=== PATIENT | female | born 1955 | race Caucasian/White ===

== ENCOUNTER 2019-01-09 19:05 | Inpatient (IN) | payer MEDICARE, OTHER ==
[2019-01-09 22:21] LABS: ADD MAN DIFF? NO
[2019-01-09] MEDS: ONDANSETRON 4 MG INJ IV (22:22)
[2019-01-09] MEDS: morphine 2 MG INJ IV (22:22)
[2019-01-09 22:24] LABS: BASOPHILS % 0.2 % (0.0-2.0); EOSINOPHILS % 0.1 % (0.0-7.0); HEMATOCRIT 34.5 % (37.0-47.0); LYMPHOCYTES # 0.8 10^3/ul (0.8-2.9); LYMPHOCYTES % 8.7 % (15.0-51.0); MEAN CORPUSCULAR HGB CONC 31.9 g/dl (32.0-37.0); MEAN CORPUSCULAR VOLUME 84.8 fl (82.0-101.0); MONOCYTE # 0.8 10^3/ul (0.3-0.9); MONOCYTES % 9.3 % (0.0-11.0); NEUTROPHIL # 7.2 10^3/ul (1.6-7.5); NEUTROPHILS % 81.1 % (39.0-77.0); PLATELET COUNT 333 10^3/UL (140-415); RED BLOOD COUNT 4.07 10^6/ul (4.20-5.40); RED CELL DISTRIBUTION WIDTH 13.8 % (11.5-14.5)
[2019-01-09 22:24] LABS: WHITE BLOOD COUNT 8.8 10^3/ul (4.8-10.8)
[2019-01-09] MEDS: SOD CHLORIDE 0.9% 1,000 ML IV (22:24)
[2019-01-09 22:33] LABS: ADD UMIC YES; UR ASCORBIC ACID 40 mg/dL (NEGATIVE); UR BILIRUBIN (Dip) NEGATIVE (NEGATIVE); UR BLOOD (Dip) NEGATIVE (NEGATIVE); UR CLARITY CLEAR (CLEAR); UR COLOR YELLOW (YELLOW); UR GLUCOSE (Dip) NEGATIVE (NEGATIVE); UR KETONES (Dip) TRACE mg/dL (NEGATIVE); UR LEUKOCYTE ESTERASE (Dip) TRACE Leu/ul (NEGATIVE); UR MUCUS FEW /HPF (NONE SEEN); UR NITRITE (Dip) NEGATIVE (NEGATIVE); UR RBC 0 /HPF (0-5); UR SPECIFIC GRAVITY (Dip) 1.016 (1.003-1.030); UR TOTAL PROTEIN (Dip) NEGATIVE (NEGATIVE); UR UROBILINOGEN (Dip) NEGATIVE (NEGATIVE); UR WBC 2 /HPF (0-5)
[2019-01-09 22:49] LABS: ALANINE AMINOTRANSFERASE 19 IU/L (13-69); ALBUMIN/GLOBULIN RATIO 1.11; ALKALINE PHOSPHATASE 99 IU/L (42-121); ANION GAP 10 (5-13); ASPARTATE AMINO TRANSFERASE 33 IU/L (15-46); BILIRUBIN,INDIRECT 0.2 mg/dl (0-1.1); BILIRUBIN,TOTAL 0.2 mg/dl (0.2-1.3); BLOOD UREA NITROGEN 15 mg/dl (7-20); CALCIUM 9.7 mg/dl (8.4-10.2); CARBON DIOXIDE 27 mmol/L (21-31); CHLORIDE 102 mmol/L (97-110); CREATININE 0.39 mg/dl (0.44-1.00); Estimated GFR > 60 mL/min (>60); GLUCOSE 135 mg/dl (70-220); POTASSIUM 4.4 mmol/L (3.5-5.1); SODIUM 139 mmol/L (135-144); TOTAL PROTEIN 7.6 g/dl (6.1-8.1)
[2019-01-09 23:01] LABS: TROPONIN-I < 0.012 ng/ml (0.000-0.120)
[2019-01-09 23:11] LABS: FREE T3 > 22.80 pg/ml (2.77-5.27)
[2019-01-09] MEDS: METHIMAZOLE 5 MG TAB PO (23:12)
[2019-01-09] MEDS: PROPRANOLOL 20 MG TAB PO (23:12)
[2019-01-09] MEDS: HYDROCORTISONE 100 MG INJ IV (23:12)
[2019-01-09 23:21] LABS: THYROID STIMULATING HORMONE < 0.015 MIU/L (0.465-4.680)
[2019-01-09] MEDS ORDERED: SOD CHLORIDE 0.9% 1,000 ML IV (23:25)
[2019-01-09] MEDS ORDERED: KETOROLAC 30 MG INJ IV (23:30)
[2019-01-09] MEDS ORDERED: ACETAMINOPHEN 325 MG TAB PO (23:30)
[2019-01-09] MEDS ORDERED: ONDANSETRON 4 MG INJ IV (23:30)
[2019-01-09 23:48] LABS: FREE T4 (FREE THYROXINE) > 6.99 ng/dl (0.78-2.44)
[2019-01-10] MEDS ORDERED: ACETAMINOPHEN 500 MG TAB PO (01:30)
[2019-01-10] MEDS: DEXTROSE 5%-0.9% NACL 1,000 ML IV (01:34)
[2019-01-10] MEDS: PROPRANOLOL 40 MG TAB PO ×3 (05:54→21:08)
[2019-01-10 06:44] LABS: IRON 12 ug/dl (35-150)
[2019-01-10 06:45] LABS: MAGNESIUM 2.2 mg/dl (1.7-2.5)
[2019-01-10 06:54] LABS: % IRON SATURATION 4 % SAT (22-52); TOTAL IRON BINDING CAPACITY 274 ug/dl (241-421)
[2019-01-10] MEDS: METHIMAZOLE 5 MG TAB PO ×2 (09:00→20:56)
[2019-01-10] MEDS: predniSONE 20 MG TAB PO (09:00)
[2019-01-10] MEDS: SOD FERRIC GLUC COMPLX 125 MG in SOD CHLORIDE 0.9% 100 ML IVPB (15:08)
[2019-01-10] MEDS: FERROUS FUMARATE (SR) TAB PO ×2 (15:08→20:56)
[2019-01-11] MEDS: DEXTROSE 5%-0.9% NACL 1,000 ML IV ×3 (01:30→21:56)
[2019-01-11] MEDS: HYDROCODONE/APAP (5/325) TAB PO ×3 (01:41→19:45)
[2019-01-11] MEDS: PROPRANOLOL 40 MG TAB PO ×3 (05:47→22:00)
[2019-01-11 06:36] LABS: ALANINE AMINOTRANSFERASE 20 IU/L (13-69); ALBUMIN 2.9 g/dl (3.3-4.9); ALBUMIN/GLOBULIN RATIO 0.96; ALKALINE PHOSPHATASE 97 IU/L (42-121); ANION GAP 5 (5-13); ASPARTATE AMINO TRANSFERASE 35 IU/L (15-46); BILIRUBIN,INDIRECT 0.2 mg/dl (0-1.1); BILIRUBIN,TOTAL 0.2 mg/dl (0.2-1.3); BLOOD UREA NITROGEN 15 mg/dl (7-20); CALCIUM 9.1 mg/dl (8.4-10.2); CARBON DIOXIDE 27 mmol/L (21-31); CHLORIDE 110 mmol/L (97-110); CREATININE 0.39 mg/dl (0.44-1.00); Estimated GFR > 60 mL/min (>60); GLUCOSE 113 mg/dl (70-220); POTASSIUM 3.3 mmol/L (3.5-5.1); SODIUM 142 mmol/L (135-144); TOTAL PROTEIN 5.9 g/dl (6.1-8.1)
[2019-01-11 08:02] LABS: ERYTHROCYTE SEDIMENTATION RATE 82 mm/Hr (0-30)
[2019-01-11] MEDS: predniSONE 20 MG TAB PO (09:21)
[2019-01-11] MEDS: METHIMAZOLE 5 MG TAB PO ×2 (09:21→21:35)
[2019-01-11] MEDS: FERROUS FUMARATE (SR) TAB PO ×2 (09:21→21:35)
[2019-01-11] MEDS: POTASSIUM CHLORIDE (SR) 20 MEQ TAB PO (12:01)
[2019-01-11] MEDS: SOD FERRIC GLUC COMPLX 125 MG in SOD CHLORIDE 0.9% 100 ML IVPB (13:33)
[2019-01-11] MEDS ORDERED: SOD CHLORIDE 0.9% 250 ML IV (20:00)
[2019-01-11] MEDS: SOD CHLORIDE 0.9% 500 ML IV (20:09)
[2019-01-11] MEDS: CELECOXIB 100 MG CAP PO (21:35)
[2019-01-12 05:39] LABS: ADD MAN DIFF? NO
[2019-01-12 05:52] LABS: BASOPHILS % 0.2 % (0.0-2.0); EOSINOPHILS % 0.2 % (0.0-7.0); HEMOGLOBIN 9.5 g/dl (12.0-16.0); LYMPHOCYTES # 1.4 10^3/ul (0.8-2.9); LYMPHOCYTES % 14.8 % (15.0-51.0); MEAN CORPUSCULAR HEMOGLOBIN 26.9 pg (29.0-33.0); MEAN CORPUSCULAR HGB CONC 31.7 g/dl (32.0-37.0); MEAN PLATELET VOLUME 10.4 fl (7.4-10.4); MONOCYTES % 10.7 % (0.0-11.0); NEUTROPHIL # 6.8 10^3/ul (1.6-7.5); NEUTROPHILS % 73.4 % (39.0-77.0); PLATELET COUNT 326 10^3/UL (140-415); RED BLOOD COUNT 3.53 10^6/ul (4.20-5.40); RED CELL DISTRIBUTION WIDTH 13.9 % (11.5-14.5)
[2019-01-12 05:52] LABS: WHITE BLOOD COUNT 9.2 10^3/ul (4.8-10.8)
[2019-01-12] MEDS: PANTOPRAZOLE (EC) 40 MG TAB PO (05:58)
[2019-01-12] MEDS: PROPRANOLOL 40 MG TAB PO ×3 (06:11→18:48)
[2019-01-12] MEDS: ONDANSETRON 4 MG INJ IV (06:33)
[2019-01-12] MEDS: POTASSIUM CHLORIDE (SR) 20 MEQ TAB PO ×2 (06:34→15:15)
[2019-01-12 06:38] LABS: ANION GAP 4 (5-13); BLOOD UREA NITROGEN 15 mg/dl (7-20); CALCIUM 9.1 mg/dl (8.4-10.2); CARBON DIOXIDE 28 mmol/L (21-31); CHLORIDE 111 mmol/L (97-110); CREATININE 0.39 mg/dl (0.44-1.00); Estimated GFR > 60 mL/min (>60); GLUCOSE 126 mg/dl (70-220); POTASSIUM 3.5 mmol/L (3.5-5.1); SODIUM 143 mmol/L (135-144)
[2019-01-12] MEDS: HYDROCODONE/APAP (5/325) TAB PO (08:41)
[2019-01-12] MEDS: CELECOXIB 100 MG CAP PO ×2 (08:41→20:47)
[2019-01-12] MEDS: FERROUS FUMARATE (SR) TAB PO ×2 (08:41→20:47)
[2019-01-12] MEDS: predniSONE 20 MG TAB PO (08:41)
[2019-01-12] MEDS: METHIMAZOLE 5 MG TAB PO ×2 (08:41→20:47)
[2019-01-12] MEDS ORDERED: PROPRANOLOL 40 MG TAB PO (12:00)
[2019-01-12] MEDS: SOD FERRIC GLUC COMPLX 125 MG in SOD CHLORIDE 0.9% 100 ML IVPB (13:33)
[2019-01-12] MEDS: DEXTROSE 5%-0.9% NACL 1,000 ML IV (13:38)
[2019-01-13] MEDS: PANTOPRAZOLE (EC) 40 MG TAB PO (06:19)
[2019-01-13] MEDS: PROPRANOLOL 40 MG TAB PO ×4 (06:19→17:43)
[2019-01-13] MEDS: HYDROCODONE/APAP (5/325) TAB PO (06:21)
[2019-01-13 06:39] LABS: ADD MAN DIFF? NO
[2019-01-13 06:43] LABS: BASOPHILS % 0.2 % (0.0-2.0); EOSINOPHILS % 0.2 % (0.0-7.0); HEMATOCRIT 28.2 % (37.0-47.0); HEMOGLOBIN 8.8 g/dl (12.0-16.0); LYMPHOCYTES # 1.6 10^3/ul (0.8-2.9); LYMPHOCYTES % 18.7 % (15.0-51.0); MEAN CORPUSCULAR HEMOGLOBIN 26.8 pg (29.0-33.0); MEAN CORPUSCULAR HGB CONC 31.2 g/dl (32.0-37.0); MEAN PLATELET VOLUME 10.6 fl (7.4-10.4); MONOCYTE # 0.9 10^3/ul (0.3-0.9); MONOCYTES % 9.8 % (0.0-11.0); NEUTROPHIL # 6.2 10^3/ul (1.6-7.5); NEUTROPHILS % 70.6 % (39.0-77.0); PLATELET COUNT 310 10^3/UL (140-415); RED BLOOD COUNT 3.28 10^6/ul (4.20-5.40); RED CELL DISTRIBUTION WIDTH 14.1 % (11.5-14.5)
[2019-01-13 06:43] LABS: WHITE BLOOD COUNT 8.7 10^3/ul (4.8-10.8)
[2019-01-13 07:04] LABS: ALANINE AMINOTRANSFERASE 24 IU/L (13-69); ALBUMIN 2.8 g/dl (3.3-4.9); ALKALINE PHOSPHATASE 95 IU/L (42-121); ANION GAP 5 (5-13); ASPARTATE AMINO TRANSFERASE 24 IU/L (15-46); BILIRUBIN,INDIRECT 0.2 mg/dl (0-1.1); BILIRUBIN,TOTAL 0.2 mg/dl (0.2-1.3); BLOOD UREA NITROGEN 15 mg/dl (7-20); CALCIUM 9.4 mg/dl (8.4-10.2); CARBON DIOXIDE 28 mmol/L (21-31); CHLORIDE 110 mmol/L (97-110); Estimated GFR > 60 mL/min (>60); GLUCOSE 106 mg/dl (70-220); SODIUM 143 mmol/L (135-144); TOTAL PROTEIN 5.6 g/dl (6.1-8.1)
[2019-01-13 07:22] LABS: FREE T4 (FREE THYROXINE) 5.61 ng/dl (0.78-2.44)
[2019-01-13 08:26] LABS: ERYTHROCYTE SEDIMENTATION RATE 83 mm/Hr (0-30)
[2019-01-13] MEDS: DEXTROSE 5%-0.9% NACL 1,000 ML IV (09:25)
[2019-01-13] MEDS: FERROUS FUMARATE (SR) TAB PO ×2 (09:26→21:49)
[2019-01-13] MEDS: CELECOXIB 100 MG CAP PO ×2 (09:26→21:49)
[2019-01-13] MEDS: predniSONE 20 MG TAB PO (09:26)
[2019-01-13] MEDS: METHIMAZOLE 5 MG TAB PO ×2 (09:27→21:49)
[2019-01-13] MEDS: SOD FERRIC GLUC COMPLX 125 MG in SOD CHLORIDE 0.9% 100 ML IVPB (13:35)
[2019-01-14] MEDS: PROPRANOLOL 40 MG TAB PO ×5 (00:21→17:28)
[2019-01-14] MEDS: PANTOPRAZOLE (EC) 40 MG TAB PO ×2 (05:05→08:25)
[2019-01-14] MEDS: DEXTROSE 5%-0.9% NACL 1,000 ML IV (05:05)
[2019-01-14] MEDS: METHIMAZOLE 5 MG TAB PO ×2 (08:25→20:47)
[2019-01-14] MEDS: predniSONE 20 MG TAB PO (08:25)
[2019-01-14] MEDS: CELECOXIB 100 MG CAP PO ×2 (08:25→20:47)
[2019-01-14] MEDS: FERROUS FUMARATE (SR) TAB PO ×2 (08:25→20:47)
[2019-01-15] MEDS: PROPRANOLOL 40 MG TAB PO ×5 (00:17→23:48)
[2019-01-15 06:09] LABS: ADD MAN DIFF? NO
[2019-01-15 06:14] LABS: BASOPHILS % 0.1 % (0.0-2.0); EOSINOPHILS # 0.1 10^3/ul (0.0-0.5); EOSINOPHILS % 0.5 % (0.0-7.0); HEMATOCRIT 28.6 % (37.0-47.0); HEMOGLOBIN 9.1 g/dl (12.0-16.0); LYMPHOCYTES # 1.5 10^3/ul (0.8-2.9); LYMPHOCYTES % 16.6 % (15.0-51.0); MEAN CORPUSCULAR HEMOGLOBIN 26.7 pg (29.0-33.0); MEAN CORPUSCULAR HGB CONC 31.8 g/dl (32.0-37.0); MEAN CORPUSCULAR VOLUME 83.9 fl (82.0-101.0); MEAN PLATELET VOLUME 10.2 fl (7.4-10.4); MONOCYTE # 0.8 10^3/ul (0.3-0.9); MONOCYTES % 9.2 % (0.0-11.0); NEUTROPHIL # 6.6 10^3/ul (1.6-7.5); NEUTROPHILS % 72.8 % (39.0-77.0); PLATELET COUNT 363 10^3/UL (140-415); RED BLOOD COUNT 3.41 10^6/ul (4.20-5.40); RED CELL DISTRIBUTION WIDTH 14.3 % (11.5-14.5)
[2019-01-15 06:14] LABS: WHITE BLOOD COUNT 9.1 10^3/ul (4.8-10.8)
[2019-01-15] MEDS: PANTOPRAZOLE (EC) 40 MG TAB PO (06:17)
[2019-01-15 06:33] LABS: ALANINE AMINOTRANSFERASE 23 IU/L (13-69); ALBUMIN 2.9 g/dl (3.3-4.9); ALBUMIN/GLOBULIN RATIO 0.93; ALKALINE PHOSPHATASE 96 IU/L (42-121); ANION GAP 7 (5-13); ASPARTATE AMINO TRANSFERASE 20 IU/L (15-46); BILIRUBIN,INDIRECT 0.2 mg/dl (0-1.1); BILIRUBIN,TOTAL 0.2 mg/dl (0.2-1.3); BLOOD UREA NITROGEN 16 mg/dl (7-20); CALCIUM 9.3 mg/dl (8.4-10.2); CARBON DIOXIDE 27 mmol/L (21-31); CHLORIDE 106 mmol/L (97-110); CREATININE 0.39 mg/dl (0.44-1.00); Estimated GFR > 60 mL/min (>60); GLUCOSE 97 mg/dl (70-220); POTASSIUM 3.7 mmol/L (3.5-5.1); SODIUM 140 mmol/L (135-144)
[2019-01-15] MEDS: CELECOXIB 100 MG CAP PO ×2 (09:11→20:37)
[2019-01-15] MEDS: FERROUS FUMARATE (SR) TAB PO ×2 (09:12→20:36)
[2019-01-15] MEDS: predniSONE 20 MG TAB PO (09:12)
[2019-01-15] MEDS: METHIMAZOLE 5 MG TAB PO ×2 (09:12→20:36)
[2019-01-15 10:41] LABS: RETICULOCYTE COUNT # 0.075 X10^6 (0.020-0.110); RETICULOCYTE COUNT % 2.2 % (0.5-1.5)
[2019-01-15 10:41] LABS: RETICULOCYTE RBC 3.36
[2019-01-15 11:59] LABS: CANCER ANTIGEN 19-9 5.5 U/ml (0.0-37.0)
[2019-01-15 12:05] LABS: CARCINOEMBRYONIC ANTIGEN < 0.3 ng/ml (0.0-5.0)
[2019-01-15 13:30] LABS: ALPHA FETOPROTEIN 1.39 IU/L (0.00-7.21)
[2019-01-15] MEDS: CYANOCOBALAMIN 1000 MCG INJ SC (18:49)
[2019-01-15] MEDS: PEG/ELECTROLYTES 4L BTL PO ×3 (20:33→23:01)
[2019-01-15] MEDS: BISACODYL (EC) 5 MG TAB PO ×3 (20:37→23:01)
[2019-01-15] MEDS: CYANOCOBALAMIN 500 MCG TAB PO (23:01)
[2019-01-15] MEDS: ONDANSETRON 4 MG INJ IV (23:15)
[2019-01-16] MEDS: PROPRANOLOL 40 MG TAB PO ×2 (05:56→12:00)
[2019-01-16] MEDS: PANTOPRAZOLE (EC) 40 MG TAB PO (05:56)
[2019-01-16 06:10] LABS: ADD MAN DIFF? NO
[2019-01-16 06:19] LABS: BASOPHILS % 0.1 % (0.0-2.0); EOSINOPHILS # 0.1 10^3/ul (0.0-0.5); EOSINOPHILS % 0.8 % (0.0-7.0); HEMATOCRIT 28.2 % (37.0-47.0); HEMOGLOBIN 8.9 g/dl (12.0-16.0); LYMPHOCYTES % 23.8 % (15.0-51.0); MEAN CORPUSCULAR HEMOGLOBIN 26.6 pg (29.0-33.0); MEAN CORPUSCULAR HGB CONC 31.6 g/dl (32.0-37.0); MEAN CORPUSCULAR VOLUME 84.2 fl (82.0-101.0); MEAN PLATELET VOLUME 10.3 fl (7.4-10.4); MONOCYTE # 0.7 10^3/ul (0.3-0.9); MONOCYTES % 8.7 % (0.0-11.0); NEUTROPHIL # 5.5 10^3/ul (1.6-7.5); NEUTROPHILS % 65.9 % (39.0-77.0); PLATELET COUNT 359 10^3/UL (140-415); RED BLOOD COUNT 3.35 10^6/ul (4.20-5.40); RED CELL DISTRIBUTION WIDTH 14.4 % (11.5-14.5)
[2019-01-16 06:19] LABS: WHITE BLOOD COUNT 8.4 10^3/ul (4.8-10.8)
[2019-01-16 06:38] LABS: INR 1.08; PARTIAL THROMBOPLASTIN TIME 39.6 Sec (23.0-35.0); PROTIME 14.1 Sec (11.9-14.9); PT RATIO 1.1
[2019-01-16 06:46] LABS: ALANINE AMINOTRANSFERASE 20 IU/L (13-69); ALBUMIN 2.7 g/dl (3.3-4.9); ALBUMIN/GLOBULIN RATIO 0.93; ALKALINE PHOSPHATASE 91 IU/L (42-121); ANION GAP 6 (5-13); ASPARTATE AMINO TRANSFERASE 19 IU/L (15-46); BILIRUBIN,INDIRECT 0.3 mg/dl (0-1.1); BILIRUBIN,TOTAL 0.3 mg/dl (0.2-1.3); BLOOD UREA NITROGEN 15 mg/dl (7-20); CALCIUM 9.1 mg/dl (8.4-10.2); CARBON DIOXIDE 28 mmol/L (21-31); CHLORIDE 106 mmol/L (97-110); CREATININE 0.44 mg/dl (0.44-1.00); Estimated GFR > 60 mL/min (>60); GLUCOSE 92 mg/dl (70-220); POTASSIUM 3.6 mmol/L (3.5-5.1); SODIUM 140 mmol/L (135-144); TOTAL PROTEIN 5.6 g/dl (6.1-8.1)
[2019-01-16] MEDS: CYANOCOBALAMIN 500 MCG TAB PO ×2 (09:00→13:31)
[2019-01-16] MEDS: FERROUS FUMARATE (SR) TAB PO ×2 (09:00→13:30)
[2019-01-16] MEDS: CELECOXIB 100 MG CAP PO ×2 (09:00→13:30)
[2019-01-16] MEDS: METHIMAZOLE 5 MG TAB PO ×2 (09:00→13:31)
[2019-01-16] MEDS: predniSONE 20 MG TAB PO ×2 (09:00→13:30)
[2019-01-16] MEDS ORDERED: LIDOCAINE 2% (SDV) 5 ML INJ (10:49)
[2019-01-16] MEDS ORDERED: PROPOFOL 40 ML (10:49)
[2019-01-16] MEDS ORDERED: ALBUTEROL 0.083% (NEB) 2.5 MG/3 ML AMP HHN (11:00)
[2019-01-16] MEDS ORDERED: METOCLOPRAMIDE 10 MG INJ IV (11:00)
[2019-01-16] MEDS ORDERED: hydrALAzine 20 MG INJ IV (11:00)
[2019-01-16] MEDS ORDERED: DIPHENHYDRAMINE 50 MG INJ IV (11:00)
[2019-01-16] MEDS ORDERED: EPHEDrine SULFATE 50 MG/5 ML SYG IV (11:00)
[2019-01-16] MEDS ORDERED: LABETALOL HCL 20MG INJ IV (11:00)
[2019-01-16] MEDS ORDERED: FENTAnyl 50 MCG/ML VIAL IV (11:00)
[2019-01-16] MEDS ORDERED: ONDANSETRON 4 MG INJ IV (11:00)
[2019-01-16 12:44] LABS: OCCULT BLOOD STOOL NEGATIVE (NEGATIVE)
== END 2019-01-16 16:40 | disposition home or self-care (01) | DRG 644 ==
LOC: PP2 23:27 → FTE 19:05
PROC: 0DB68ZX Excision of Stomach, Via Natural or Artificial Opening Endoscopic, Diagnostic (ICD-10-PCS; principal; 2019-01-16 10:10)
DX: E05.21 Thyrotoxicosis with toxic multinodular goiter with thyrotoxic crisis or storm (principal); K22.10 Ulcer of esophagus without bleeding; R06.03 Acute respiratory distress; I25.10 Atherosclerotic heart disease of native coronary artery without angina pectoris; F32.9 Major depressive disorder, single episode, unspecified; K31.7 Polyp of stomach and duodenum; K29.50 Unspecified chronic gastritis without bleeding; R63.4 Abnormal weight loss; M81.0 Age-related osteoporosis without current pathological fracture; I11.0 Hypertensive heart disease with heart failure; I50.9 Heart failure, unspecified; K21.0 Gastro-esophageal reflux disease with esophagitis; D50.9 Iron deficiency anemia, unspecified; E78.5 Hyperlipidemia, unspecified; R00.0 Tachycardia, unspecified; E86.0 Dehydration; K59.00 Constipation, unspecified; F41.9 Anxiety disorder, unspecified; E87.6 Hypokalemia; Z90.49 Acquired absence of other specified parts of digestive tract
CPT/HCPCS: 36415; 70490; 71045; 76536; 80048; 80053; 81001; 82105; 82270; 82378; 82607; 82728; 82746; 83540; 83735; 84439; 84443; 84481; 84484; 85025; 85045; 85610; 85651; 85730; 86301; 88305; 88312; 93005; 96374; 96375; 99285-25

== ENCOUNTER 2019-02-25 19:34 | Emergency (ER) | payer MEDICARE, OTHER | END 2019-02-25 21:25 | disposition home or self-care (01) | LOC: FTE 19:34 | DX: S61.552A Open bite of left wrist, initial encounter (principal); W54.0XXA Bitten by dog, initial encounter; Y92.9 Unspecified place or not applicable | CPT/HCPCS: 99282 ==